=== PATIENT | female | born 1965 | race Caucasian/White ===

== ENCOUNTER 2024-10-05 18:38 | Inpatient (IN) | payer OTHER ==
[~2024-10-05] VITALS: Ht 154.9 cm; Wt 66.7 kg
[2024-10-05] MEDS ORDERED: ZOLP10TA2 PO (18:49)
[2024-10-05 19:23] LABS: BASOPHILS # (AUTO) 0.1 K/UL (0.0-0.2); BASOPHILS % (AUTO) 1.1 % (0.0-2.0); EOSINOPHILS # (AUTO) 0.2 K/uL (0.0-0.7); EOSINOPHILS % (AUTO) 3.1 % (0.0-7.0); HEMATOCRIT 38.2 % (31.2-41.9); HEMOGLOBIN 13.1 g/dL (10.9-14.3); LYMPHOCYTES # (AUTO) 1.7 K/uL (0.8-4.8); LYMPHOCYTES % (AUTO) 24.3 % (20.5-51.5); MEAN CORPUSCULAR HEMOGLOBIN 31.3 uug (24.7-32.8); MEAN CORPUSCULAR HGB CONC 34 g/dL (32.3-35.6); MEAN CORPUSCULAR VOLUME 91.2 fL (75.5-95.3); MONOCYTES # (AUTO) 0.5 K/uL (0.1-1.30); MONOCYTES % (AUTO) 7.8 % (0.0-11.0); NEUTROPHILS # (AUTO) 4.5 K/uL (1.8-8.9); NEUTROPHILS % (AUTO) 63.7 % (38.5-71.5); PLATELET COUNT (AUTO) 342 K/uL (179-408); RED BLOOD CELL COUNT(AUTO) 4.19 MIL/uL (3.63-4.92); RED CELL DISTRIBUTION WIDTH 13.5 % (12.3-17.7); WHITE BLOOD COUNT (AUTO) 7.1 K/uL (3.8-11.8)
[2024-10-05 19:25] LABS: DIFFERENTIAL COMMENT 1
[2024-10-05 19:27] LABS: ERYTHROCYTE SEDIMENTATION RATE < 1 MM/HR (0-20)
[2024-10-05 19:30] LABS: CALCIUM 9.1 mg/dL (8.5-10.1); CREATININE 0.7 mg/dL (0.6-1.3); POTASSIUM 3.6 mmol/L (3.5-5.1)
[2024-10-05 19:45] LABS: ALBUMIN 3.3 g/dL (3.4-5.0); BILIRUBIN,TOTAL 0.5 mg/dL (0.2-1.0); TOTAL PROTEIN, SERUM 6.1 g/dL (6.4-8.2)
[2024-10-05 20:49] LABS: *BILIRUBIN,URIN NEGATIVE (NEGATIVE); *CLARITY,URINE CLEAR (CLEAR); *COLOR,URINE YELLOW (YELLOW); *KETONES,URINE NEGATIVE (NEGATIVE); *PROTEIN,URINE NEGATIVE (NEGATIVE); *UROBILINOGEN,URINE 0.2 E.U./dl (NORMAL); PH,URINE 5.5 (5.0-8.0); UGLUCOSE NEGATIVE (NEGATIVE)
[2024-10-05 20:50] LABS: LEUKOCYTE ESTERASE ,URINE NEGATIVE (NEGATIVE); NITRITE, URINE NEGATIVE (NEGATIVE)
[2024-10-05 20:51] LABS: *BLOOD, URINE TRACE (NEGATIVE)
[2024-10-05 21:01] LABS: *AMPHETAMINE, URINE NEGATIVE (NEGATIVE); *BARBITURATE, URINE NEGATIVE (NEGATIVE); *BENZODIAZEPINE, URINE NEGATIVE (NEGATIVE); *CANNABINOID, URINE NEGATIVE (NEGATIVE); *COCCAINE, URINE NEGATIVE (NEGATIVE); *OPIATE, URINE NEGATIVE (NEGATIVE); *PHENCYCLIDINE SCREEN,URINE NEGATIVE (NEGATIVE); FENTANYL, URINE NEGATIVE (NEGATIVE)
[2024-10-05 21:04] LABS: BACTERIA,URINE NONE SEEN /HPF (NONE SEEN); RBC,URINE 0-3 /HPF (0-3); SQUAMOUS EPITHELIAL CELL,UR FEW /HPF (NONE SEEN); WBC,URINE 0-3 /HPF (0-3)
[2024-10-05] MEDS ORDERED: SWABABLE VALVE TRANSFER SET EA MC ONE (21:24)
[2024-10-05] MEDS ORDERED: IV NORMAL SALINE 250 ML IV ONE (21:24)
[2024-10-05] MEDS ORDERED: IOHEXOL 350 100 ML INFUS..BTL ONE (21:24)
[2024-10-05] MEDS ORDERED: FUROSEMIDE 40 MG/4 ML VIAL ONE (22:47)
[2024-10-05] MEDS: FUROSEMIDE 40 MG/4 ML VIAL IV ONE (22:57)
[2024-10-05] MEDS ORDERED: ONDANSETRON 4 MG/2 ML VIAL ONE (23:05)
[2024-10-05] MEDS: ONDANSETRON 4 MG/2 ML VIAL IV ONE (23:12)
[2024-10-06] MEDS ORDERED: ACETAMINOPHEN 325 MG TABLET PO PRN (01:30)
[2024-10-06] MEDS ORDERED: REMEDY ESSENTIAL ZINC PASTE 113 GM TP PRN (01:30)
[2024-10-06] MEDS ORDERED: MAGNESIUM HYDROXIDE 30 ML LIQUID UDC PO PRN (01:30)
[2024-10-06 04:46] VITALS: BP 147/97; TEMP 98.2; O2SAT 99
[2024-10-06 06:50] LABS: BASOPHILS # (AUTO) 0.1 K/UL (0.0-0.2); BASOPHILS % (AUTO) 0.8 % (0.0-2.0); EOSINOPHILS # (AUTO) 0.1 K/uL (0.0-0.7); EOSINOPHILS % (AUTO) 2.2 % (0.0-7.0); HEMATOCRIT 37.5 % (31.2-41.9); HEMOGLOBIN 13.2 g/dL (10.9-14.3); LYMPHOCYTES # (AUTO) 1.5 K/uL (0.8-4.8); LYMPHOCYTES % (AUTO) 21.9 % (20.5-51.5); MEAN CORPUSCULAR HEMOGLOBIN 31.8 uug (24.7-32.8); MEAN CORPUSCULAR HGB CONC 35 g/dL (32.3-35.6); MEAN CORPUSCULAR VOLUME 90.2 fL (75.5-95.3); MONOCYTES # (AUTO) 0.6 K/uL (0.1-1.30); MONOCYTES % (AUTO) 9.5 % (0.0-11.0); NEUTROPHILS # (AUTO) 4.3 K/uL (1.8-8.9); NEUTROPHILS % (AUTO) 65.6 % (38.5-71.5); PLATELET COUNT (AUTO) 330 K/uL (179-408); RED BLOOD CELL COUNT(AUTO) 4.16 MIL/uL (3.63-4.92); RED CELL DISTRIBUTION WIDTH 13.3 % (12.3-17.7); WHITE BLOOD COUNT (AUTO) 6.6 K/uL (3.8-11.8)
[2024-10-06 06:51] LABS: DIFFERENTIAL COMMENT 1
[2024-10-06 07:09] LABS: CALCIUM 8.8 mg/dL (8.5-10.1); CREATININE 0.6 mg/dL (0.6-1.3); PHOSPHOROUS 4.3 mg/dL (2.5-4.9); POTASSIUM 3.1 mmol/L (3.5-5.1)
[2024-10-06 07:41] VITALS: BP 121/87; TEMP 97.6; O2SAT 94
[2024-10-06] MEDS ORDERED: POTASSIUM CHLORIDE 20 MEQ POWDER PACKET GT ONE (07:45)
[2024-10-06] MEDS: POTASSIUM CHLORIDE 50 ML IV SCH (08:41)
[2024-10-06] MEDS: POTASSIUM CHLORIDE 20 MEQ TAB.PRT.SR PO ONE (08:42)
[2024-10-06] MEDS: FUROSEMIDE 40 MG/4 ML VIAL IV SCH (08:42)
[2024-10-06] MEDS: PANTOPRAZOLE SODIUM 40 MG TABLET.DR PO SCH (08:42)
[2024-10-06] MEDS: ONDANSETRON 4 MG/2 ML VIAL IV PRN (08:55)
[2024-10-06 11:20] VITALS: BP 122/83; TEMP 98.4; O2SAT 92
[2024-10-06 15:03] VITALS: BP 109/75; TEMP 98.3; O2SAT 94
[2024-10-06 19:40] VITALS: BP 119/83; TEMP 97.8; O2SAT 95
[2024-10-07 00:30] VITALS: BP 106/67; TEMP 97.9; O2SAT 95
[2024-10-07 04:59] VITALS: BP 124/85; TEMP 98.1; O2SAT 92
[2024-10-07 06:57] LABS: CALCIUM 9.1 mg/dL (8.5-10.1); CREATININE 0.8 mg/dL (0.6-1.3); PHOSPHOROUS 4.1 mg/dL (2.5-4.9); POTASSIUM 3.9 mmol/L (3.5-5.1)
[2024-10-07 07:01] LABS: BASOPHILS # (AUTO) 0.1 K/UL (0.0-0.2); BASOPHILS % (AUTO) 1.3 % (0.0-2.0); EOSINOPHILS # (AUTO) 0.3 K/uL (0.0-0.7); EOSINOPHILS % (AUTO) 4.7 % (0.0-7.0); HEMATOCRIT 38.8 % (31.2-41.9); HEMOGLOBIN 13.5 g/dL (10.9-14.3); LYMPHOCYTES # (AUTO) 2.3 K/uL (0.8-4.8); LYMPHOCYTES % (AUTO) 35.8 % (20.5-51.5); MEAN CORPUSCULAR HEMOGLOBIN 31.9 uug (24.7-32.8); MEAN CORPUSCULAR HGB CONC 35 g/dL (32.3-35.6); MEAN CORPUSCULAR VOLUME 91.4 fL (75.5-95.3); MONOCYTES # (AUTO) 0.7 K/uL (0.1-1.30); MONOCYTES % (AUTO) 10.3 % (0.0-11.0); NEUTROPHILS % (AUTO) 47.9 % (38.5-71.5); PLATELET COUNT (AUTO) 326 K/uL (179-408); RED BLOOD CELL COUNT(AUTO) 4.24 MIL/uL (3.63-4.92); RED CELL DISTRIBUTION WIDTH 12.9 % (12.3-17.7); WHITE BLOOD COUNT (AUTO) 6.3 K/uL (3.8-11.8)
[2024-10-07 08:00] VITALS: BP 121/83; TEMP 98.6; O2SAT 94
[2024-10-07] MEDS: FUROSEMIDE 20 MG/2 ML VIAL IVP SCH (08:53)
[2024-10-07] MEDS: VALSARTAN 40 MG TABLET PO SCH (08:54)
[2024-10-07] MEDS: SPIRONOLACTONE 25 MG TABLET PO SCH (08:54)
[2024-10-07] MEDS ORDERED: FUROSEMIDE 40 MG/4 ML VIAL IV SCH (09:00)
[2024-10-07] MEDS: METOPROLOL TARTRATE 50 MG TABLET PO ONE (10:13)
[2024-10-07 11:57] VITALS: BP 112/75; TEMP 97.8; O2SAT 96
[2024-10-07 15:55] VITALS: BP 107/75; TEMP 97.7; O2SAT 94
[2024-10-07 20:00] VITALS: BP 102/74; TEMP 97.4; O2SAT 96
[2024-10-08 06:00] VITALS: BP 109/80; TEMP 97.4; O2SAT 95
[2024-10-08 07:51] VITALS: BP 102/75; TEMP 97.6; O2SAT 97
[2024-10-08 12:00] VITALS: BP 108/64; TEMP 97.6; O2SAT 97
[2024-10-08 12:14] LABS: CREATININE 0.8 mg/dL (0.6-1.3); POTASSIUM 4.1 mmol/L (3.5-5.1)
[2024-10-08 12:26] LABS: ALBUMIN 3.5 g/dL (3.4-5.0); BILIRUBIN,TOTAL 0.5 mg/dL (0.2-1.0); TOTAL PROTEIN, SERUM 6.6 g/dL (6.4-8.2)
[2024-10-08] MEDS ORDERED: SPIR25TA PO (12:55)
[2024-10-08] MEDS ORDERED: SACU1TAB PO (12:55)
[2024-10-08] MEDS ORDERED: CARV3.12 PO (12:55)
[2024-10-08] MEDS ORDERED: EMPA10TA PO (12:55)
[2024-10-08] MEDS ORDERED: FURO-152 PO (12:55)
[2024-10-08 16:00] VITALS: BP 127/76; TEMP 97.8; O2SAT 97
== END 2024-10-08 15:45 | disposition home or self-care (01) | DRG 292 ==
LOC: ER 18:40 → TELE3 10-06 01:15
PROVIDERS: ADMIT Nurse Practitioner Family; ATTEND Nurse Practitioner Acute Care
PROC: 05HC33Z Insertion of Infusion Device into Left Basilic Vein, Percutaneous Approach (ICD-10-PCS; principal; 2024-10-07)
DX: I50.23 Acute on chronic systolic (congestive) heart failure (principal); I31.39 Other pericardial effusion (noninflammatory); I42.0 Dilated cardiomyopathy; K76.1 Chronic passive congestion of liver; I08.0 Rheumatic disorders of both mitral and aortic valves; E87.6 Hypokalemia; T50.1X5A Adverse effect of loop [high-ceiling] diuretics, initial encounter; Y92.230 Patient room in hospital as the place of occurrence of the external cause; Z88.1 Allergy status to other antibiotic agents; Z82.49 Family history of ischemic heart disease and other diseases of the circulatory system; R03.0 Elevated blood-pressure reading, without diagnosis of hypertension
CPT/HCPCS: 36415; 71045; 71275; 83735; 84100; 84484; 85025; 85651; 93307; G0378; J1940; J2405; J3480; Q9967